=== PATIENT | female | born 1955 | race Caucasian/White ===

== ENCOUNTER 2020-11-22 16:52 | Inpatient (IN) ==
[2020-11-22] MEDS ORDERED: Aspirin Enteric Coated 81 MG Tablet PO ONE (21:24)
[2020-11-22] MEDS ORDERED: Perflutren Lipid Microsphere 1.3 ML in 0.9 % Sodium Chloride 8.7 ML IVP PRN (21:25)
[2020-11-22] MEDS ORDERED: Dextrose Gel 15 GM/37.5 ML TUBE PO PRN ×2 (21:35)
[2020-11-22] MEDS ORDERED: D5% in Water 1,000 ML IVC PRN (21:35)
[2020-11-22] MEDS ORDERED: *HR* Dextrose 50 % in Water (Vial) 50 ML VIAL IVP PRN (21:35)
[2020-11-22] MEDS ORDERED: Naloxone 0.4 MG/ML INJ IVP PRN (21:36)
[2020-11-22] MEDS ORDERED: Acetaminophen 325 MG TABLET PO PRN (21:36)
[2020-11-22 22:21] LABS: Prothrombin Time 44.1 Seconds (9.4-12.1)
[2020-11-22] MEDS: Insulin LISPRO 300 UNITS/3 ML VIAL SUBQ SCH (22:56)
[2020-11-23 04:35] LABS: Hematocrit 36.7 % (35.3-44.9); Mean Corpuscular HGB Conc 32.7 g/dL (31.6-35.5); Mean Corpuscular Hemoglobin 29.7 pg (28.0-33.3); Mean Corpuscular Volume 90.8 fL (83.0-100.0); Mean Platelet Volume 11.1 fL (9.4-12.4); Platelet Count 296 K/mcL (140-400); Red Blood Count 4.04 M/mcL (3.82-4.97); Red Cell Distribution Width 12.5 % (11.5-14.5); White Blood Count 8.6 K/mcL (4.3-11.1)
[2020-11-23 04:41] LABS: Estimated Average Glucose 263 mg/dl; Hemoglobin A1C 10.8 %
[2020-11-23 04:49] LABS: Activated Partial Thrombo Time 40.3 Seconds (26.0-36.0)
[2020-11-23 04:55] LABS: Chol/HDL Ratio 3.8 (0-4.9); Magnesium 2.1 mg/dL (1.6-2.6); Potassium 2.7 mEq/L (3.5-5.1)
[2020-11-23 05:13] LABS: Thyroid Stimulating Hormone 2.694 mcIU/mL (0.340-5.600)
[2020-11-23 05:23] LABS: Vitamin D 25 Hydroxy 26 ng/mL (30-80)
[2020-11-23 05:24] LABS: Folate 5.7 ng/mL (3.0-16.0)
[2020-11-23 05:27] LABS: Vitamin B12 > 1500 pg/mL (250-1100)
[2020-11-23] MEDS ORDERED: Famotidine 20 MG/2 ML VIAL IVP SCH (06:00)
[2020-11-23] MEDS ORDERED: Potassium Chloride 40 MEQ, Lidocaine 1% 2 ML in 0.9 % Sodium Chloride 500 ML IVPB ONE (09:15)
[2020-11-23] MEDS ORDERED: Ziprasidone 20 MG CAPSULE PO SCH (09:30)
[2020-11-23] MEDS: Famotidine 20 MG TABLET PO SCH ×2 (09:33→16:53)
[2020-11-23] MEDS: Topiramate 100 MG TABLET PO SCH ×2 (09:38→20:07)
[2020-11-23] MEDS: Aspirin Enteric Coated 81 MG Tablet PO SCH (09:38)
[2020-11-23] MEDS: Levothyroxine 25 MCG TABLET PO SCH (09:39)
[2020-11-23] MEDS: Insulin LISPRO 300 UNITS/3 ML VIAL SUBQ SCH ×4 (09:54→20:10)
[2020-11-23 11:48] LABS: INR 4.3; Prothrombin Time 48.2 Seconds (9.4-12.1)
[2020-11-23] MEDS ORDERED: NON-FORMULARY MEDICATION 1 EACH EACH (Topiramate [Topamax] 50 MG Tablet) PO SCH (13:00)
[2020-11-23] MEDS ORDERED: Metoprolol XL (24 HR) Succ 25 MG TAB.ER.24H PO SCH (13:30)
[2020-11-23] MEDS: Insulin DETEMIR 100 UNIT/ML X5UNITS SUBQ SCH (16:54)
[2020-11-23] MEDS: 0.9 % Sodium Chloride 1,000 ML IVC SCH (16:54)
[2020-11-23] MEDS ORDERED: Warfarin perPT PO PRN (18:00)
[2020-11-23 18:03] LABS: Calcium 8.7 mg/dL (8.6-10.3); Potassium 3.8 mEq/L (3.5-5.1)
[2020-11-23] MEDS: Ziprasidone 20 MG CAPSULE PO SCH (20:07)
[2020-11-24] MEDS ORDERED: *HR* Labetalol 20 MG/4 ML SYRINGE IVP ONE (02:51)
[2020-11-24] MEDS: Famotidine 20 MG TABLET PO SCH (06:04)
[2020-11-24] MEDS: 0.9 % Sodium Chloride 1,000 ML IVC SCH (06:04)
[2020-11-24] MEDS: Levothyroxine 25 MCG TABLET PO SCH (06:04)
[2020-11-24] MEDS: Insulin LISPRO 300 UNITS/3 ML VIAL SUBQ SCH (08:29)
[2020-11-24] MEDS: Ziprasidone 20 MG CAPSULE PO SCH (08:38)
[2020-11-24] MEDS: Aspirin Enteric Coated 81 MG Tablet PO SCH (08:39)
[2020-11-24] MEDS: Topiramate 100 MG TABLET PO SCH (08:40)
[2020-11-24 08:53] LABS: BUN/Creatinine Ratio 15 (6-26); Blood Urea Nitrogen 16 mg/dL (8-23); Calcium 8.6 mg/dL (8.6-10.3); Carbon Dioxide 19 mEq/L (23-29); Chloride 107 mEq/L (98-107); Glucose 136 mg/dL (70-105); Magnesium 2.2 mg/dL (1.6-2.6); Osmolality,Calculated 289 (280-300); Phosphorous 3.2 mg/dL (2.7-4.5); Potassium 3.7 mEq/L (3.5-5.1); Sodium 138 mEq/L (136-145); eGFR For African Americans > 60 (> 60); eGFR For Non-African Americans 51 (> 60)
[2020-11-24] MEDS ORDERED: hydroCHLOROthiazide 25 MG TABLET PO SCH (09:00)
[2020-11-24] MEDS ORDERED: Loratadine 10 MG TABLET PO SCH (09:00)
[2020-11-24] MEDS ORDERED: Isosorbide MONOnitrate (24 HR) 60 MG TAB.ER.24H PO SCH (09:00)
[2020-11-24] MEDS: Insulin DETEMIR 100 UNIT/ML X5UNITS SUBQ SCH (10:11)
[2020-11-24 10:43] LABS: INR 2.2
[2020-11-24 15:12] VITALS: BP 152/74; PULSE 77; TEMP 98.2; O2SAT 94
[2020-11-24] MEDS ORDERED: *HR* Warfarin 7.5 MG TABLET PO ONE (18:00)
[2020-11-25] MEDS ORDERED: Metoprolol XL (24 HR) Succ 25 MG TAB.ER.24H PO SCH (09:00)
== END 2020-11-24 17:54 | disposition home health service (06) | DRG 948 ==
LOC: 3BNU → SUATTDRO 11-23 18:12
PROVIDERS: ADMIT Pharmacist; ATTEND Internal Medicine